=== PATIENT | male | born 1980 | race Caucasian/White ===

== ENCOUNTER 2016-06-21 15:03 | Emergency (ER) | payer SELFPAY ==
[~2016-06-21] VITALS: Ht 175.3 cm; Wt 59.5 kg
[~2016-06-21 15:03] MED LIST: ACET-1256 PO; IBUP-103 PO
[2016-06-21 15:36] VITALS: TEMP 36.8; Ht 175.3 cm; Wt 59.5 kg
[2016-06-21] MEDS ORDERED: KETOROLAC TROMETHAMINE 60 MG/2 ML VIAL IM STA (16:04)
[2016-06-21] MEDS ORDERED: MoRPHine SULFATE 10 MG/ML CARP/VIAL IM STA (16:04)
--- NOTE | 2016-06-21 16:47 | DIAGNOSTIC IMAGING REPORT ---
THORACIC SPINE 3 VIEWS HISTORY: Pain low and mid back pain COMPARISON: None. FINDINGS: There is no fracture. Mild scoliosis Disc spaces are preserved. IMPRESSION: No fracture or subluxation within the thoracic spine. Electronically signed by: José Grant M.D. 06/21/2016 4:46 PM Dictated Date/Time: 06/21/2016 4:46 PM
--- NOTE | 2016-06-21 16:47 | DIAGNOSTIC IMAGING REPORT ---
LUMBAR SPINE 5 VIEWS HISTORY: Pain low and mid back pain COMPARISON: None. FINDINGS: There is no fracture. No subluxation. Disc spaces are preserved. IMPRESSION: No fracture or subluxation within the lumbar spine. Electronically signed by: José Grant M.D. 06/21/2016 4:46 PM Dictated Date/Time: 06/21/2016 4:45 PM
[2016-06-21] MEDS ORDERED: OXYC-57 PO (17:40)
[2016-06-21] MEDS ORDERED: CYCL10TA6 PO (17:40)
--- NOTE | 2016-06-21 17:42 | EMERGENCY ROOM VISIT NOTE ---
ED Visit Note First contact with patient: 15:52 CHIEF COMPLAINT: Back pain HISTORY OF PRESENT ILLNESS: This 36-year-old male patient presents to the emergency department ambulatory complaining of pain in the back which began this morning when he woke up. The pain was gradual in onset, is now constant and worse with movement. He states the patient radiates from his tailbone up into his mid back. The patient notes the pain as sharp and a 10/10. The patient has taken no medications for relief of the pain. The patient denies any loss of control of their bowel or bladder functions. There has been no leg numbness or weakness, and no change in sensation. No nausea or vomiting or abdominal pain. No chest pain or shortness of breath. The patient has not had prior back injuries. No dysuria or increased urinary frequency. REVIEW OF SYSTEMS: A review of systems was performed with positives and pertinent negatives listed in the history of present illness. All other systems were reviewed and are negative. ALLERGIES: No known drug allergies MEDICATIONS: No chronic medications PMH: No significant past mental history. SOCIAL HISTORY: The patient lives locally with family. PHYSICAL EXAM: VITALS: Vitals are noted on the nurse's note and reviewed by myself. Vital signs stable. GENERAL: This is a 36-year-old male, in no acute distress, nondiaphoretic, well- developed well-nourished. SKIN: The skin was without rashes, erythema, edema, or bruising. Capillary refill less than 2 seconds. NECK: Supple without nuchal rigidity. No cervical spine tenderness. No paraspinous muscle tenderness. HEART: Regular rate and rhythm without murmurs gallops or rubs. LUNGS: Clear to auscultation bilaterally without wheezes, rales or rhonchi. ABDOMEN: Positive bowel sounds x 4. Normal tympanic percussion. Soft, nontender, without masses or organomegaly. Isidro sign negative. MUSCULOSKELETAL: No muscle atrophy, erythema, or edema noted of the back. There is mild tenderness over the lumbar and thoracic spinous processes. There is no tenderness over the paraspinous muscles. There are no muscle spasms present. The patient is slow to move around with maximum tenderness with flexion. Negative straight leg raise test. NEURO: Patient was alert and oriented to person place and time. Normal sensation to light and sharp touch. Deep tendon reflexes 2+ in the lower extremities. Dorsalis pedis pulse 2+ bilaterally. Strength 5/5 and equal in the bilateral lower extremities. RADIOGRAPHIC FINDINGS: LUMBAR SPINE 5 VIEWS IMPRESSION: No fracture or subluxation within the lumbar spine. THORACIC SPINE 3 VIEWS IMPRESSION: No fracture or subluxation within the thoracic spine. EMERGENCY DEPARTMENT COURSE: The patient was evaluated as above. X-rays of the lumbar and thoracic spine were performed and read by radiology with no acute findings. The patient was given 60 mg Toradol IM and 6 mg morphine IM with moderate relief of his pain. He will be discharged home with a prescription for pain medication and Flexeril. The [place] prescription drug monitoring program was queried and no red flags were identified. There is nothing to suggest cauda equina syndrome or cord compression. He was instructed to follow-up with his primary care provider for further evaluation of his back pain. The patient verbalized understanding of my assessment and treatment plan and was discharged home in good condition. DIAGNOSIS: Back pain Problem List Medical Problems: (1) Chronic back pain Status: Chronic Current/Historical Medications Scheduled Cyclobenzaprine Hcl (Flexeril), 10 MG PO TID Scheduled PRN Oxycodone/Acetaminophen 5MG/325MG (Percocet 5MG/325MG), 1-2 TABS PO Q4H PRN for Pain Allergies Coded Allergies: No Known Allergies (Unverified , 11/22/13) Vital Signs Date Time Temp Pulse Resp B/P Pulse Ox O2 Delivery O2 Flow Rate FiO2 06/21/16 17:47 67 16 116/69 94 Room Air 06/21/16 15:36 36.8 96 18 111/78 96 Room Air Medications Administered Medications (Trade) Dose Ordered Sig/Troy Route Start Time Stop Time Status Last Admin Dose Admin Morphine Sulfate (MoRPHine SULFATE INJ) 6 mg NOW STAT IM 06/21/16 16:04 06/21/16 16:06 DC 06/21/16 16:48 6 MG Ketorolac Tromethamine (Toradol Inj) 60 mg NOW STAT IM 06/21/16 16:04 06/21/16 16:06 DC 06/21/16 16:48 60 MG Departure Information Impression Primary Impression: Back pain Dispostion Home / Self-Care Condition GOOD Prescriptions Oxycodone/Acetaminophen 5MG/325MG (PERCOCET 5MG/325MG) Tab 1-2 TABS PO Q4H Y for Pain, #15 TAB For Initial Treatment Prov: Yvonne Dinh .ANUM 06/21/16 Cyclobenzaprine Hcl (FLEXERIL) 10 Mg Tab 10 MG PO TID for 5 Days, #15 TAB Prov: Yvonne Dinh PA-C 06/21/16 Referrals No Doctor, Assigned (PCP) Patient Instructions My [facility] Additional Instructions You have been treated in the Emergency Department for Back Pain. You have received pain medicine in the emergency department which impairs your ability to operate a vehicle. It is illegal for you to drive after receiving these medicines. You have been prescribed Percocet to be used for pain control. This is a narcotic medication. You cannot drive or consume alcohol while on this medicine. This medicine should only be used for pain that cannot be controlled with [id number]-[id number] pain medicines. You have been prescribed Flexeril (cyclobenzaprine) 1-2 tabs orally, three times per day. Do NOT exceed 30 mg (6 tabs) per day. Take your first dose at bedtime as it can make you drowsy. Always take all medications as prescribed. For pain control, you can use the following okup-pli-mrzdfdl medicines (if >12 yo): - Regular strength (325mg/tab) Tylenol (acetaminophen) 2 tabs every 4-6 hours as needed. Do not exceed 12 tablets in a 24 hour period. Avoid taking more than 4 grams (4000 mg) of Tylenol per day. This includes any other sources of acetaminophen you may take on a regular basis. - Regular strength (200 mg/tab) Advil (ibuprofen) 1-2 tabs every 4-6 hours as needed. Do not exceed a dose of 3200 mg per day. If this is an acute injury, ice can be applied to the area of pain for the first 3 days to help decrease pain and inflammation. After the first 3 days, a heating pad can be used over the area for continued soothing relief. You should schedule a follow-up appointment in 2-3 days with your Primary Care Provider for further evaluation and treatment of your back pain. Return to the Emergency Department if your current symptoms worsen despite treatment course outlined above, or if you develop any of the following symptoms : intractable pain despite aforementioned treatment course, loss of control of your bowel or bladder, numbness or tingling in your groin, or development of a fever. Problem Qualifiers Primary Impression: Back pain Back pain location: back pain in unspecified location Chronicity: acute Back pain laterality: midline Qualified Codes: M54.9 - Dorsalgia, unspecified
[2016-06-21 17:47] VITALS: BP 116/69; PULSE 67; O2SAT 94
== END 2016-06-21 17:48 | disposition home or self-care (01) ==
LOC: C.EDB 15:11 → C.EDD 17:48
DX: M54.9 Dorsalgia, unspecified (principal); G89.29 Other chronic pain

== ENCOUNTER 2016-07-04 14:00 | Emergency (ER) | payer SELFPAY ==
[~2016-07-04] VITALS: Ht 175.3 cm; Wt 59.1 kg
[~2016-07-04 14:00] MED LIST changes: -ACET-1256 PO; -IBUP-103 PO; +OXYC-57 PO
[2016-07-04 14:09] VITALS: TEMP 37.1; Ht 175.3 cm; Wt 59.1 kg
[2016-07-04] MEDS ORDERED: OXYC-57 PO (14:44)
--- NOTE | 2016-07-04 14:44 | EMERGENCY ROOM VISIT NOTE ---
ED Visit Note First contact with patient: 14:17 CHIEF COMPLAINT: Left upper back pain HISTORY OF PRESENT ILLNESS: The patient presents to the emergency department ambulatory complaining of pain in the left shoulder which began over the last several days. The pain was gradual in onset, is now constant and worse with movement. The patient states he was lifting heavy things and felt a pull in his upper back. He was seen here at the beginning of the month with similar symptoms and took Percocet which seemed to relieve the pain. He states he felt that it was completely improved until he lifted again and felt a pulling and tightening sensation. The patient notes the pain as sharp and a 8/10. The patient has taken nothing currently relief of the pain. The patient denies any bowel or bladder difficulties. There has been no arm numbness or weakness, and no change in sensation. No nausea or vomiting or abdominal pain. No chest pain or shortness of breath. The patient has had prior back injuries. REVIEW OF SYSTEMS: No dysuria or increased urinary frequency. A 10 system review of systems was completed and pertinent positives and negatives are in the HPI. ALLERGIES: No known drug allergies MEDICATIONS: None PMH: None SOCIAL HISTORY: The patient lives locally PHYSICAL EXAM: VITALS: Vitals are noted on the nurse's note and reviewed by myself. No abnormalities noted. GENERAL: This is a 36-year-old male, in no acute distress, nondiaphoretic, well- developed well-nourished. SKIN: The skin was without rashes, erythema, edema, or bruising. Capillary refill less than 2 seconds. NECK: Supple without nuchal rigidity. No cervical spine tenderness. No paraspinous muscle tenderness. HEART: Regular rate and rhythm without murmurs gallops or rubs. LUNGS: Clear to auscultation bilaterally without wheezes, rales or rhonchi. ABDOMEN: Positive bowel sounds x 4. Normal tympanic percussion. Soft, nontender, without masses or organomegaly. Isidro sign negative. MUSCULOSKELETAL: No muscle atrophy, erythema, or edema noted of the back. There is moderate tenderness over the left rhomboid and there is moderate spasm. There is no tenderness to palpation over the vertebrae. NEURO: Patient was alert and oriented to person place and time. Normal sensation to light and sharp touch. Deep tendon reflexes 2+ in the upper extremities. Dorsalis pedis pulse 2+ bilaterally. Strength is 5/5 in the lower external is bilaterally. EMERGENCY DEPARTMENT COURSE: The patient was seen and examined. Previous visits were reviewed. The patient has a muscle spasm in the left rhomboid. He had been doing well from the beginning of the month with something heavy and had a spasm again. He does not have any numbness, and, weakness in the upper extremities. He has not had any chest pain or trouble breathing. He has not had any falls. The patient states that he has tried muscle relaxers in the past with no relief. He states that the Percocet helped. I advised him that I would give him a few Percocet but he must follow-up with a family doctor for further evaluation, management and pain management. He was advised that the emergency department cannot continue to prescribe pain medication for this. He knowledge his understanding. I did review the prescription drug monitoring website. The patient has received an occasional narcotic prescription and seemed to only be from the emergency department. I did elect to give him #8 Percocet but did student counselor him that we cannot continue to prescribe pain medication and he must see his family doctor. He acknowledged understanding. DIFFERENTIAL DIAGNOSIS: Cervical strain, cervical spondylosis, cervical discogenic pain, thoracic outlet syndrome, cervical radiculopathy, herpes zoster , cervical disc herniation, bulging, meningitis, among others. DIAGNOSIS: Lumbar strain DISCHARGE INSTRUCTIONS AND TREATMENT: Rest off your feet for 1 to 2 days, ice for 24 hrs then heat to the shoulder blade.Percocet 1-2 tablet every 4-6 hours as needed for worse pain. No driving or alcohol use with Percocet and do not take with Tylenol. You must follow-up with a family doctor for further evaluation and pain management. The emergency department will not continue to prescribe pain medication. Problem List Medical Problems: (1) Chronic back pain Status: Chronic Current/Historical Medications Scheduled PRN Oxycodone/Acetaminophen 5MG/325MG (Percocet 5MG/325MG), 1 TAB PO Q6 PRN for Pain Allergies Coded Allergies: No Known Allergies (Unverified , 07/04/16) Vital Signs Date Time Temp Pulse Resp B/P Pulse Ox O2 Delivery O2 Flow Rate FiO2 07/04/16 14:53 101 133/75 96 07/04/16 14:09 37.1 101 20 117/69 95 Departure Information Impression Primary Impression: Rhomboid muscle strain Dispostion Home / Self-Care Condition GOOD Prescriptions Oxycodone/Acetaminophen 5MG/325MG (PERCOCET 5MG/325MG) Tab 1 TAB PO Q6 Y for Pain, #8 TAB For Initial Treatment Prov: Brandi Goodman PA-C 07/04/16 Referrals No Doctor, Assigned (PCP) Patient Instructions ED Spasm Muscle, My [facility] Additional Instructions Rest off your feet for 1 to 2 days, ice for 24 hrs then heat to the shoulder blade.Percocet 1-2 tablet every 4-6 hours as needed for worse pain. No driving or alcohol use with Percocet and do not take with Tylenol. You must follow-up with a family doctor for further evaluation and pain management. The emergency department will not continue to prescribe pain medication. Problem Qualifiers Primary Impression: Rhomboid muscle strain Encounter type: initial encounter Qualified Codes: S29.012A - Strain of muscle and tendon of back wall of thorax, initial encounter
[2016-07-04 14:53] VITALS: BP 133/75; PULSE 101; O2SAT 96
== END 2016-07-04 14:55 | disposition home or self-care (01) ==
LOC: C.EDB 14:01 → C.EDD 14:55
DX: S29.012A Strain of muscle and tendon of back wall of thorax, initial encounter (principal); X50.0XXA Overexertion from strenuous movement or load, initial encounter

== ENCOUNTER 2016-07-21 14:27 | Emergency (ER) | payer SELFPAY ==
[~2016-07-21] VITALS: Ht 175.3 cm; Wt 58.2 kg
[2016-07-21 14:47] VITALS: BP 104/72; PULSE 97; TEMP 36.8; O2SAT 99; Ht 175.3 cm; Wt 58.2 kg
--- NOTE | 2016-07-21 15:19 | EMERGENCY ROOM VISIT NOTE ---
ED Visit Note First contact with patient: 15:01 CHIEF COMPLAINT: Low back pain HISTORY OF PRESENT ILLNESS: This 36-year-old male patient presents to the emergency department ambulatory complaining of pain in the low back which began 2 weeks ago. The patient reports he has a history of low back pain due to an injury 2 years ago while [employer]. He reports the pain flares up occasionally when he lifts something heavy. The pain was gradual in onset, is now constant and worse with movement. The patient notes the pain as dull and an 8/10. The patient has taken Tylenol and used icy hot for relief of the pain. The patient denies any loss of control of their bowel or bladder functions. There has been no leg numbness or weakness, and no change in sensation. No nausea or vomiting or abdominal pain. No chest pain or shortness of breath. No dysuria or increased urinary frequency. The patient reports he called his primary care provider's office today and they are not able to see him until tomorrow. REVIEW OF SYSTEMS: A review of systems was performed with positives and pertinent negatives listed in the history of present illness. All other systems were reviewed and are negative. ALLERGIES: No known drug allergies MEDICATIONS: Chronic medications PMH: No significant past medical history. SOCIAL HISTORY: The patient lives locally with his . He is a smoker. He denies alcohol use. PHYSICAL EXAM: VITALS: Vitals are noted on the nurse's note and reviewed by myself. Vital signs stable. GENERAL: This is a 36-year-old male, in no acute distress, nondiaphoretic, well- developed well-nourished. SKIN: The skin was without rashes, erythema, edema, or bruising. Capillary refill less than 2 seconds. NECK: Supple without nuchal rigidity. No cervical spine tenderness. No paraspinous muscle tenderness. HEART: Regular rate and rhythm without murmurs gallops or rubs. LUNGS: Clear to auscultation bilaterally without wheezes, rales or rhonchi. ABDOMEN: Positive bowel sounds x 4. Normal tympanic percussion. Soft, nontender, without masses or organomegaly. Isidro sign negative. MUSCULOSKELETAL: No muscle atrophy, erythema, or edema noted of the back. There is no tenderness over the lumbar spinous processes. There is mild tenderness over the bilateral lumbar paraspinous muscles. There is no tenderness over the thoracic spine or paraspinous muscles. There are no muscle spasms present. The patient has full range of motion of the spine. Negative straight leg raise test. NEURO: Patient was alert and oriented to person place and time. Normal sensation to light and sharp touch. Deep tendon reflexes 2+ in the lower extremities. Dorsalis pedis pulse 2+ bilaterally. Strength 5/5 and equal in the bilateral lower extremities. EMERGENCY DEPARTMENT COURSE: The patient was evaluated as above. He presents with lumbar back pain which sounds to be muscular. The patient has had pain in the past. He has an appointment with his primary care provider tomorrow. There is no numbness, weakness or incontinence to suggest cauda equina syndrome or cord compression. I do not feel imaging is necessary at this time. The patient will be provided with a prescription for Naprosyn and follow-up with the primary care provider tomorrow as scheduled. He did report that he had been given Percocet previously and requested this and I informed him that it was not appropriate to receive several narcotic prescriptions for the same complaint from the emergency department. He will need to follow up with his primary care provider for any further narcotic pain medication. The [place] prescription drug monitoring program was reviewed. The patient has received 2 narcotic prescriptions in the past month from this emergency department. The patient verbalizes understanding of my assessment and treatment plan and was discharged home in good condition. DIAGNOSIS: Lumbar back pain Problem List Medical Problems: (1) Chronic back pain Status: Chronic Current/Historical Medications No Active Prescriptions or Reported Meds Allergies Coded Allergies: No Known Allergies (Unverified , 07/21/16) Vital Signs Date Time Temp Pulse Resp B/P Pulse Ox O2 Delivery O2 Flow Rate FiO2 07/21/16 14:47 36.8 97 20 104/72 99 Room Air Departure Information Impression Primary Impression: Lumbar back pain Dispostion Home / Self-Care Condition GOOD Prescriptions Naproxen (Naprosyn) 500 Mg Tab 500 MG PO BID for 14 Days, #28 TAB Prov: Yvonne Dinh .ANUM 07/21/16 Referrals No Doctor, Assigned (PCP) Patient Instructions My [facility] Additional Instructions You have been treated in the Emergency Department for Back Pain. Naprosyn as prescribed. For pain control, you can use the following czfm-cil-cyyhabr medicines (if >12 yo): - Regular strength (325mg/tab) Tylenol (acetaminophen) 2 tabs every 4-6 hours as needed. Do not exceed 12 tablets in a 24 hour period. Avoid taking more than 4 grams (4000 mg) of Tylenol per day. This includes any other sources of acetaminophen you may take on a regular basis. - Regular strength (200 mg/tab) Advil (ibuprofen) 1-2 tabs every 4-6 hours as needed. Do not exceed a dose of 3200 mg per day. If this is an acute injury, ice can be applied to the area of pain for the first 3 days to help decrease pain and inflammation. After the first 3 days, a heating pad can be used over the area for continued soothing relief. You should schedule a follow-up appointment in 2-3 days with your Primary Care Provider for further evaluation and treatment of your back pain. Return to the Emergency Department if your current symptoms worsen despite treatment course outlined above, or if you develop any of the following symptoms : intractable pain despite aforementioned treatment course, loss of control of your bowel or bladder, numbness or tingling in your groin, or development of a fever. Problem Qualifiers Primary Impression: Lumbar back pain Chronicity: chronic Back pain laterality: bilateral Sciatica presence: without sciatica Qualified Codes: M54.5 - Low back pain; G89.29 - Other chronic pain
[2016-07-21] MEDS ORDERED: NAPR-1169 PO (15:29)
== END 2016-07-21 15:44 | disposition home or self-care (01) ==
LOC: C.EDB 14:30 → C.EDD 15:44
DX: M54.5 Low back pain (principal); G89.29 Other chronic pain; F17.200 Nicotine dependence, unspecified, uncomplicated